=== PATIENT | male | born 1990 | race Two or more races ===

== ENCOUNTER 2018-09-29 16:21 | Outpatient (CLI) | payer OTHER | END 2018-09-29 17:06 | disposition home or self-care (01) | LOC: TOM 16:21 | DX: G44.301 Post-traumatic headache, unspecified, intractable (principal); R57.0 Cardiogenic shock ==

== ENCOUNTER → 2020-05-07 17:03 | Outpatient (CLI) | payer OTHER | END | disposition home or self-care (01) | LOC: LAB 17:03 → RAD 17:03 | DX: M62.838 Other muscle spasm (principal) ==